=== PATIENT | male | born 1995 | race Hispanic/Latino ===

== ENCOUNTER 2019-12-08 16:18 | Emergency (ER) | payer SELFPAY ==
[2019-12-08] MEDS ORDERED: Acetaminophen 500 MG TAB ONE (16:48)
[2019-12-08] MEDS ORDERED: Sulfameth/Trimethoprim DS 800-160mg TAB ONE (16:48)
== END 2019-12-08 17:00 | disposition home or self-care (01) ==
LOC: MADERS 16:18
DX: L03.116 Cellulitis of left lower limb (principal); F17.200 Nicotine dependence, unspecified, uncomplicated
CPT/HCPCS: 99283

== ENCOUNTER 2023-12-18 15:54 | Emergency (ER) | payer SELFPAY ==
[~2023-12-18 15:54] MED LIST: Iopamidol 370 76% 100 ML VIAL ONE; Sodium Chloride 0.9% 100 ML BAG ONE
[2023-12-18] MEDS ORDERED: Lidocaine 1% w/Epinephrine 1:100K 20 ML VIAL ONE (16:07)
[2023-12-18] MEDS ORDERED: Boostrix 0.5 ML (Tdap) VIAL (>/=7 yrs of age) ONE (16:07)
[2023-12-18] MEDS ORDERED: Bacitracin 1 PK ONE (16:36)
[2023-12-18] MEDS ORDERED: CEFAZOLIN 1 GM VIAL ONE (16:59)
[2023-12-18] MEDS ORDERED: Sodium Chloride 0.9% 1,000 ML ONE (16:59)
[2023-12-18] MEDS ORDERED: Sodium Chloride 0.9% 100 ML ONE (16:59)
[2023-12-18 17:20] LABS: #Basophils 0.1 thou/uL (0.0-0.2); #Eosinophils 0.2 thou/uL (0.0-0.7); #Lymphocytes 3.6 thou/uL (1.20-3.40); #Monocytes 0.8 thou/uL (0.11-0.59); #Neutrophils 4.1 thou/uL (1.40-6.50); %Basophils 1.2 % (0.0-1.0); %Eosinophils 2.6 % (0.0-10.0); %Monocytes 8.7 % (0.0-10.0); %Neutrophils 46.5 % (42.0-75.0); Hematocrit 45.1 % (42.0-52.0); Hemoglobin 15.1 g/dL (14.0-18.0); Mean Corpuscular HGB CONC 33.6 g/dL (32.0-36.0); Mean Corpuscular Volume 89.5 fl (78.0-98.0); Mean Platelet Volume 7.4 fL (7.4-10.4); Platelet Count 336 10x3/uL (130-400); RBC Distribution Width 11.2 % (11.5-14.5); Red Blood Cell (RBC) Count 5.04 mill/uL (4.70-6.10); White Blood Cell (WBC) Count 8.8 10x3/uL (4.8-10.8)
[2023-12-18 17:28] LABS: Anion Gap 18 mmol/L (10-20); BUN (Urea Nitrogen) 10 mg/dL (8.9-20.6); Calc. Creatinine Clearance 0 mL/min (70-130); Calcium 9.3 mg/dL (7.8-10.44); Carbon Dioxide 20 mmol/L (22-29); Chloride 106 mmol/L (98-107); Estimated GFR 114; Glucose 106 mg/dL (70-105); Potassium 3.9 mmol/L (3.5-5.1); Sodium 140 mmol/L (136-145)
== END 2023-12-18 19:23 | disposition short-term general hospital (02) ==
LOC: MADERS 15:54
DX: S61.512A Laceration without foreign body of left wrist, initial encounter (principal); S61.511A Laceration without foreign body of right wrist, initial encounter; F17.210 Nicotine dependence, cigarettes, uncomplicated; W25.XXXA Contact with sharp glass, initial encounter; Z23 Encounter for immunization
CPT/HCPCS: 12002; 36415; 80048; 85025; 90471; 90715; 96365; J0690; J7030; Q9967

== ENCOUNTER 2023-12-28 15:55 | Emergency (ER) | payer SELFPAY | END 2023-12-28 16:46 | disposition home or self-care (01) | LOC: MADERS 15:55 | DX: S61.512D Laceration without foreign body of left wrist, subsequent encounter (principal); S61.511D Laceration without foreign body of right wrist, subsequent encounter; F17.210 Nicotine dependence, cigarettes, uncomplicated; W25.XXXD Contact with sharp glass, subsequent encounter ==